=== PATIENT | male | born 1980 | race Caucasian/White ===

== ENCOUNTER 2017-05-15 10:55 | Emergency (ER) | payer OTHER ==
--- NOTE | ~2017-05-15 | EKG ---
PATIENT: MOJGAN LEE UNIT #: [id number] Ventricular Rate: 72 BPM Atrial Rate: 72 BPM P-R Interval: 146 ms QRS Duration: 84 ms Q-T Interval: 382 ms QTC Calculation(Bezet): 418 ms P [place]: 61 degrees Calculated R [place]: 83 degrees Calculated T [place]: 59 degrees Diagnosis Line: Normal sinus rhythm Diagnosis Line: Normal ECG Diagnosis Line: No previous ECGs available Diagnosis Line: Confirmed by JOVAN RAE MD ([id number]) on Diagnosis Line: 05/16/2017 4:49:52 PM INTERPRETING MD: BUTCH SIBLEY
[2017-05-15] MEDS ORDERED: ALPRAZOLAM (11:00)
== END 2017-05-15 12:34 | disposition home or self-care (01) ==
LOC: SED 10:55
DX: F41.9 Anxiety disorder, unspecified (principal); F15.93 Other stimulant use, unspecified with withdrawal; F17.210 Nicotine dependence, cigarettes, uncomplicated
CPT/HCPCS: 93005; 99283